=== PATIENT | female | born 1995 | race Caucasian/White ===

== ENCOUNTER 2017-12-13 11:18 | Observation (INO) | payer BC ==
[~2017-12-13] VITALS: Ht 182.9 cm; Wt 77.6 kg
[2017-12-13] MEDS ORDERED: BUPR200T34 (11:30)
[2017-12-13] MEDS ORDERED: NS(*) 0.9% 1000 ML BAG 1,000 ML IV ONE ×2 (11:32→12:08)
[2017-12-13] MEDS ORDERED: ONDANSETRON 4 MG/2 ML VIAL IVP ONE (11:35)
[2017-12-13] MEDS ORDERED: fentaNYL CITR 100 MCG/2 ML AMP IVP ONE ×2 (11:35→13:25)
--- NOTE | 2017-12-13 11:49 | ER Report ---
History and Physical Time Seen By MD: 11:34 Hx. of Stated Complaint: patient reports abdominal pain that started around 0650. HPI/ROS 22 year old awoke this am with periumbilical abd pain and nausea this am. one episode of diarrhea Allergies: Coded Allergies: No Known Drug Allergies (Unverified , 12/13/17) Home Meds Reported Medications Bupropion Hcl (BUPROPION XL) 150 Mg Tab.er.24h, 150 MG PO QDAY, #10 TAB 12/13/17 Discontinued Reported Medications Bupropion HCl (Bupropion HCl ER) 200 Mg Tablet.er 12/13/17 Past Medical/Surgical History lmp 2 weeks ago, not sexually active , depression Reviewed Nurses Notes: Yes Old Medical Records Reviewed: Yes Hx Substance Use Disorder: No Hx Alcohol Use: No Family History of: HTN, Diabetes (father) Constitutional Vital Sign - Last 24 Hours 12/13/17 12/13/17 12/13/17 12/13/17 11:22 11:26 11:33 11:48 Temp 97.4 Pulse 64 67 71 Resp 20 B/P (MAP) 109/65 109/65 (80) Pulse Ox 94 96 95 O2 Delivery Room Air 12/13/17 12/13/17 12/13/17 12/13/17 11:55 12:00 12:03 12:18 Pulse 66 69 B/P (MAP) 104/72 (83) 113/78 (90) Pulse Ox 98 86 12/13/17 12/13/17 12/13/17 12/13/17 12:30 12:33 13:00 13:03 Pulse 62 81 B/P (MAP) 113/67 (82) 114/68 (83) Pulse Ox 100 100 12/13/17 12/13/17 12/13/17 12/13/17 13:08 13:30 13:38 14:00 Pulse 85 83 B/P (MAP) 114/66 (82) 141/96 (111) Pulse Ox 99 100 12/13/17 12/13/17 12/13/17 12/13/17 14:08 14:30 14:38 15:00 Pulse 86 86 B/P (MAP) 130/78 (95) 111/80 (90) Pulse Ox 98 97 12/13/17 12/13/17 12/13/17 12/13/17 15:05 15:20 15:30 15:35 Pulse 97 77 89 B/P (MAP) 113/78 (90) Pulse Ox 96 98 98 Intake and Output 12/13/17 12/13/17 12/14/17 15:00 23:00 07:00 Intake Total 2000 ml Balance 2000 ml Physical Exam CHIEF COMPLAINT: Right lower quadrant abdominal pain HISTORY OF PRESENT ILLNESS: [Patient is a 22-year-old female states that she was well yesterday ate and drank with family for the holiday woke up this morning feeling very nauseated had a bout of diarrhea. Umbilical abdominal pain is now migrated to right lower quadrant must have 4 elements] REVIEW OF SYSTEMS: Respiratory: No cough, no dyspnea. Cardiovascular: No chest pain, no palpitations. Gastrointestinal: No vomiting, right lower quadrant abdominal pain positive rebound. Musculoskeletal: No back pain. Medical Decision Making Data Points Result Diagram: 12/13/17 1144 12/13/17 1144 Laboratory Hematology Test 12/13/17 11:26 12/13/17 11:44 12/13/17 12:13 12/13/17 13:42 Urine Color Yellow Urine Clarity Clear Urine pH 5.0 pH (4.8-9.5) Urine Specific Rodney 1.038 Urine Protein Negative mg/dL (NEGATIVE) Urine Glucose (UA) 500 mg/dL (NEGATIVE) Urine Ketones 20 mg/dL (NEGATIVE) Urine Blood Negative (NEGATIVE) Urine Nitrite Negative (NEGATIVE) Urine Bilirubin Negative (NEGATIVE) Urine Urobilinogen Negative mg/dL (0.2-1.9) Urine Leukocyte Esterase Negative (NEGATIVE) Urine RBC None /HPF (0-2/HPF) Urine WBC 1 /HPF (0-5/HPF) Urine Squamous Epithelial Cells Moderate /LPF (</=FEW) Urine Bacteria Few /HPF (NONE-FEW) Urine Mucus None /HPF (NONE-FEW) Red Blood Count 5.35 M/uL (4.17-5.56) Mean Corpuscular Volume 92.0 fL (80.0-96.0) Mean Corpuscular Hemoglobin 32.3 pg (26.0-33.0) Mean Corpuscular Hemoglobin Concent 35.2 g/dL (32.0-36.0) Red Cell Distribution Width 12.5 % (11.5-14.5) Mean Platelet Volume 8.1 fL (7.2-11.1) Neutrophils (%) (Auto) 85.6 % (39.4-72.5) Lymphocytes (%) (Auto) 6.5 % (17.6-49.6) Monocytes (%) (Auto) 6.8 % (4.1-12.4) Eosinophils (%) (Auto) 0.3 % (0.4-6.7) Basophils (%) (Auto) 0.8 % (0.3-1.4) Nucleated RBC Relative Count (auto) 0.1 /100WBC Neutrophils # (Auto) 11.2 K/uL (2.0-7.4) Lymphocytes # (Auto) 0.9 K/uL (1.3-3.6) Monocytes # (Auto) 0.9 K/uL (0.3-1.0) Eosinophils # (Auto) 0.0 K/uL (0.0-0.5) Basophils # (Auto) 0.1 K/uL (0.0-0.1) Nucleated RBC Absolute Count (auto) 0.01 K/uL Sodium Level 136 mmol/L (137-145) Potassium Level 3.9 mmol/L (3.5-5.0) Chloride Level 94 mmol/L (98-107) Carbon Dioxide Level 25 mmol/L (22-31) Blood Urea Nitrogen 14 mg/dl (7-18) Creatinine 0.80 mg/dl (0.52-1.04) Glomerular Filtration Rate Calc > 60.0 Random Glucose 456 mg/dl (75-110) Osmolality 304 mOSM/K (275-295) Lactate 1.6 mmol/L (0.7-2.1) Calcium Level 9.8 mg/dl (8.4-10.2) Total Bilirubin 0.7 mg/dl (0.2-1.3) Aspartate Amino Transf (AST/SGOT) 16 U/L (0-35) Alanine Aminotransferase (ALT/SGPT) 30 U/L (0-56) Alkaline Phosphatase 118 U/L (0-126) Total Protein 7.9 gm/dl (6.3-8.2) Albumin 4.6 g/dl (3.5-5.0) Amylase Level 80 U/L (0-110) Lipase 96 U/L (23-300) Human Chorionic Gonadotropin, Qual Negative (NEGATIVE) Acetone, Qualitative Small Venous Blood pH 7.32 (7.31-7.41) Whole Blood Glucose 418 mg/DL (75-110) Test 12/13/17 14:04 Chemistry Test 12/13/17 11:26 12/13/17 11:44 12/13/17 12:13 12/13/17 13:42 Urine Color Yellow Urine Clarity Clear Urine pH 5.0 pH (4.8-9.5) Urine Specific Rodney 1.038 Urine Protein Negative mg/dL (NEGATIVE) Urine Glucose (UA) 500 mg/dL (NEGATIVE) Urine Ketones 20 mg/dL (NEGATIVE) Urine Blood Negative (NEGATIVE) Urine Nitrite Negative (NEGATIVE) Urine Bilirubin Negative (NEGATIVE) Urine Urobilinogen Negative mg/dL (0.2-1.9) Urine Leukocyte Esterase Negative (NEGATIVE) Urine RBC None /HPF (0-2/HPF) Urine WBC 1 /HPF (0-5/HPF) Urine Squamous Epithelial Cells Moderate /LPF (</=FEW) Urine Bacteria Few /HPF (NONE-FEW) Urine Mucus None /HPF (NONE-FEW) White Blood Count 13.1 k/uL (4.5-11.0) Red Blood Count 5.35 M/uL (4.17-5.56) Hemoglobin 17.3 g/dL (12.0-16.0) Hematocrit 49.2 % (34.0-47.0) Mean Corpuscular Volume 92.0 fL (80.0-96.0) Mean Corpuscular Hemoglobin 32.3 pg (26.0-33.0) Mean Corpuscular Hemoglobin Concent 35.2 g/dL (32.0-36.0) Red Cell Distribution Width 12.5 % (11.5-14.5) Platelet Count 331 K/uL (150-450) Mean Platelet Volume 8.1 fL (7.2-11.1) Neutrophils (%) (Auto) 85.6 % (39.4-72.5) Lymphocytes (%) (Auto) 6.5 % (17.6-49.6) Monocytes (%) (Auto) 6.8 % (4.1-12.4) Eosinophils (%) (Auto) 0.3 % (0.4-6.7) Basophils (%) (Auto) 0.8 % (0.3-1.4) Nucleated RBC Relative Count (auto) 0.1 /100WBC Neutrophils # (Auto) 11.2 K/uL (2.0-7.4) Lymphocytes # (Auto) 0.9 K/uL (1.3-3.6) Monocytes # (Auto) 0.9 K/uL (0.3-1.0) Eosinophils # (Auto) 0.0 K/uL (0.0-0.5) Basophils # (Auto) 0.1 K/uL (0.0-0.1) Nucleated RBC Absolute Count (auto) 0.01 K/uL Glomerular Filtration Rate Calc > 60.0 Osmolality 304 mOSM/K (275-295) Lactate 1.6 mmol/L (0.7-2.1) Calcium Level 9.8 mg/dl (8.4-10.2) Total Bilirubin 0.7 mg/dl (0.2-1.3) Aspartate Amino Transf (AST/SGOT) 16 U/L (0-35) Alanine Aminotransferase (ALT/SGPT) 30 U/L (0-56) Alkaline Phosphatase 118 U/L (0-126) Total Protein 7.9 gm/dl (6.3-8.2) Albumin 4.6 g/dl (3.5-5.0) Amylase Level 80 U/L (0-110) Lipase 96 U/L (23-300) Human Chorionic Gonadotropin, Qual Negative (NEGATIVE) Acetone, Qualitative Small Venous Blood pH 7.32 (7.31-7.41) Whole Blood Glucose 418 mg/DL (75-110) Test 12/13/17 14:04 Toxicology Test 12/13/17 11:44 Acetone, Qualitative Small Urinalysis Test 12/13/17 11:26 Urine Color Yellow Urine Clarity Clear Urine pH 5.0 pH (4.8-9.5) Urine Specific Rodney 1.038 Urine Protein Negative mg/dL (NEGATIVE) Urine Glucose (UA) 500 mg/dL (NEGATIVE) Urine Ketones 20 mg/dL (NEGATIVE) Urine Blood Negative (NEGATIVE) Urine Nitrite Negative (NEGATIVE) Urine Bilirubin Negative (NEGATIVE) Urine Urobilinogen Negative mg/dL (0.2-1.9) Urine Leukocyte Esterase Negative (NEGATIVE) Urine RBC None /HPF (0-2/HPF) Urine WBC 1 /HPF (0-5/HPF) Urine Squamous Epithelial Cells Moderate /LPF (</=FEW) Urine Bacteria Few /HPF (NONE-FEW) Urine Mucus None /HPF (NONE-FEW) Microbiology Microbiology Date/Time Source Procedure Growth Status 12/13/17 14:04 Vaginal Wet Prep - Final Resulted 12/13/17 14:04 Vaginal Genital Culture Pending Resulted EKG/Imaging Imaging FACILITY: [facility] PATIENT NAME: Jessika Delacruz : 1995 MR: [id number] V: [id number] EXAM DATE: [id number] ORDERING PHYSICIAN: LEONOR CAMERON TECHNOLOGIST: [place] [facility] [place]: Jessika Delacruz : 1995 Visit/Account:[id number] Date of Sevice: 12/13/2017 PELVIC HISTORY: rlq abd pain appedix ok by ct but has a right ovarian c TECHNIQUE: Transabdominal ultrasound pelvis. COMPARISON: CT and pelvis performed earlier today FINDINGS: Uterus: ; 6.5 cm length x 2.9 cm AP x 3.5 cm transverse. Myometrium: Unremarkable. Endometrium: Unremarkable; double thickness 5.5 mm. Cervix: Grossly negative. Ovaries: Right - 2.9 x 1.9 x 3.6 cm. There is a 1.8 cm cyst in the right ovary Left - 3.4 x 2 x 2.4 cm Blood flow is documented in each ovary by duplex Doppler ultrasound. Adnexa: Grossly unremarkable. Free pelvic fluid: None. IMPRESSION: 1.8 cm simple cyst in the right ovary Report Dictated By: Ana Adames MD at 12/13/2017 2:59 PM Report E-Signed By: Ana Adames MD at 12/13/2017 3:02 PM WSN:[id number] FACILITY: [facility] PATIENT NAME: Jessiak Delacruz : 1995 MR: [id number] V: [id number] EXAM DATE: [id number] ORDERING PHYSICIAN: LEONOR CAMERON TECHNOLOGIST: [place] [facility] [place]: Jessika Delacruz : 1995 Visit/Account:[id number] Date of Sevice: 12/13/2017 COMPUTED TOMOGRAPHY OF THE Abdomen and Pelvis with CONTRAST INDICATION: Right lower quadrant abdominal pain. TECHNIQUE: Contiguous axial 3.[address] images were obtained through the abdomen and pelvis after the administration of 75 cc Isovue-370. Coronal and sagittal reformatted images were submitted. COMPARISON: None. FINDINGS: Lung bases: Clear. Liver and hepatic vasculature: Minimal fatty infiltration adjacent to falciform. No focal lesion. No ascites. Gallbladder and bile ducts: Normal Spleen: Normal Pancreas: Normal Adrenals: Normal Kidneys, ureters and bladder: No hydronephrosis or collecting system obstruction. Normal-appearing bladder. Retroperitoneum and aorta: Normal caliber aorta. GI tract, mesentery and peritoneum: No bowel obstruction. No free fluid or free air. Normal appendix. A few small bowel loops in the midabdomen have a mildly thickened wall. There is no jessica dilation. Uterus and adnexa: Unremarkable uterus. Trace fluid in the cul-de-sac. 1.9 cm right ovarian cyst. Bones and soft tissues: No acute osseous abnormality. IMPRESSION: 1. Normal appendix. 2. 1.9 cm right ovarian cyst with trace fluid in the cul-de-sac. 3. A few small bowel loops do appear mildly thick walled which could be from incomplete filling but could also reflect enteritis depending on the clinical history. No obstruction. One of the following dose optimization techniques was utilized in the performance of this exam: Automated exposure control; adjustment of the mA and/ or kV according to the patient's size; or use of an iterative reconstruction technique. Specific details can be referenced in the facility's radiology CT exam operational policy. Report Dictated By: Mina Allan MD at 12/13/2017 1:23 PM Report E-Signed By: Mina Allan MD at 12/13/2017 1:32 PM WSN:[id number] ED Course/Re-evaluation Clinical Indication for ER IV: Hydration ED Course 7414 discussed the patient with hospitalist he would like us to try and outpatient education protocol with this patient the did let him know patient is enteritis and not eating at this time with her high blood sugar. Seen by diabetic education the emergency room they had concerns about the patient going home as well did call the hospitalist back pain agreed to admit this patient with dehydration and enteritis with new rebound high blood sugar Re-evaluation Given 2 L of normal saline in the emergency room blood sugar went from 456 to 418 by bedside glucometer after the 2 L Procedure pelvic exam done. scant whit discharge, no adenexal tenderness Decision to Disposition Date: Dec 13, 2017 Decision to Disposition Time: 16:58 Depart Departure Latest Vital Signs Vital Signs Date Time Temp Pulse Resp B/P (MAP) Pulse Ox O2 Delivery O2 Flow Rate FiO2 12/13/17 15:35 89 98 12/13/17 15:30 113/78 (90) 12/13/17 11:22 97.4 20 Room Air Impression: Primary Impression: Enteritis Additional Impressions: Dehydration Hyperglycemia Ovarian cyst Condition: Condition Unchanged Disposition: Admitted from ER Problem Qualifiers LEONOR CAMERON Dec 13, 2017 11:49
[2017-12-13 11:54] LABS: PLATELET COUNT, AUTOMATED 331 K/uL (150-450)
[2017-12-13] MEDS ORDERED: IOPAMIDOL 76% 75 ML INFUS BTL 75 ML ONE (12:45)
--- NOTE | 2017-12-13 13:37 | RADIOLOGY IMAGING REPORT ---
FACILITY: [facility] PATIENT NAME: Jessika Delacruz : 1995 MR: [id number] V: [id number] EXAM DATE: ORDERING PHYSICIAN: LEONOR CAMERON TECHNOLOGIST: Location: [facility] Patient: Jessika Delacruz : 1995 Visit/Account:[id number] Date of Sevice: 12/13/2017 COMPUTED TOMOGRAPHY OF THE Abdomen and Pelvis with CONTRAST INDICATION: Right lower quadrant abdominal pain. TECHNIQUE: Contiguous axial 3.[address] images were obtained through the abdomen and pelvis after the administration of 75 cc Isovue-370. Coronal and sagittal reformatted images were submitted. COMPARISON: None. FINDINGS: Lung bases: Clear. Liver and hepatic vasculature: Minimal fatty infiltration adjacent to falciform. No focal lesion. No ascites. Gallbladder and bile ducts: Normal Spleen: Normal Pancreas: Normal Adrenals: Normal Kidneys, ureters and bladder: No hydronephrosis or collecting system obstruction. Normal-appearing b ladder. Retroperitoneum and aorta: Normal caliber aorta. GI tract, mesentery and peritoneum: No bowel obstruction. No free fluid or free air. Normal appendix. A few small bowel loops in the midabdomen have a mildly thickened wall. There is no jessica dilation. Uterus and adnexa: Unremarkable uterus. Trace fluid in the cul-de-sac. 1.9 cm right ovarian cyst. Bones and soft tissues: No acute osseous abnormality. IMPRESSION: 1. Normal appendix. 2. 1.9 cm right ovarian cyst with trace fluid in the cul-de-sac. 3. A few small bowel loops do appear mildly thick walled which could be from incomplete filling but c ould also reflect enteritis depending on the clinical history. No obstruction. One of the following dose optimization techniques was utilized in the performance of this exam: Autom ated exposure control; adjustment of the mA and/or kV according to the patient's size; or use of an i terative reconstruction technique. Specific details can be referenced in the facility's radiology C T exam operational policy. Report Dictated By: Mina Allan MD at 12/13/2017 1:23 PM Report E-Signed By: Mina Allan MD at 12/13/2017 1:32 PM WSN:[id number]
--- NOTE | 2017-12-13 15:07 | RADIOLOGY IMAGING REPORT ---
FACILITY: [facility] PATIENT NAME: Jessika Delacruz : 1995 MR: [id number] V: [id number] EXAM DATE: ORDERING PHYSICIAN: LEONOR CAMERON TECHNOLOGIST: Location: [facility] - [place] Patient: Jessika Delacruz : 1995 Visit/Account:[id number] Date of Sevice: 12/13/2017 PELVIC HISTORY: rlq abd pain appedix ok by ct but has a right ovarian c TECHNIQUE: Transabdominal ultrasound pelvis. COMPARISON: CT and pelvis performed earlier today FINDINGS: Uterus: ; 6.5 cm length x 2.9 cm AP x 3.5 cm transverse. Myometrium: Unremarkable. Endometrium: Unremarkable; double thickness 5.5 mm. Cervix: Grossly negative. Ovaries: Right - 2.9 x 1.9 x 3.6 cm. There is a 1.8 cm cyst in the right ovary Left - 3.4 x 2 x 2.4 cm Blood flow is documented in each ovary by duplex Doppler ultrasound. Adnexa: Grossly unremarkable. Free pelvic fluid: None. IMPRESSION: 1.8 cm simple cyst in the right ovary Report Dictated By: Ana Adames MD at 12/13/2017 2:59 PM Report E-Signed By: Ana Adames MD at 12/13/2017 3:02 PM WSN:[email or web address]
[2017-12-13 15:59] VITALS: BP 120/73
[2017-12-13] MEDS ORDERED: PROMETHAZINE 25 MG/ML 1 ML AMP IVP PRN (16:10)
[2017-12-13] MEDS ORDERED: BUPR-124 PO (16:20)
--- NOTE | 2017-12-13 16:24 | History & Physical ---
History of Present Illness Chief Complaint Nausea and vomiting History of Present Illness This patient presented to the emergency room complaining of nausea, vomiting, and abdominal pain. Her work up for abdominal pathology is negative to this point, but she was found to have an elevated blood sugar. She denies any previous history of diabetes, and also denies any classic symptoms such as polyuria and polydipsia. History Problems: (1) No significant past medical history Home Meds Reported Medications Bupropion HCl (Bupropion HCl ER) 200 Mg Tablet.er 12/13/17 Allergies: Coded Allergies: No Known Drug Allergies (Unverified , 12/13/17) Hx Smoking: No Smoking Status: Never Smoker Caffeine Intake: Coffee, Soda Caffeine/Cups Per Day: 4-6 drinks Hx Alcohol Use: No Hx Substance Use Disorder: No Social Drug Use: Never Review of Systems All Systems Reviewed/Normal: Yes, Except as Noted Gastrointestinal: Nausea, Vomiting Exam Vital Signs Vital Signs Date Time Temp Pulse Resp B/P (MAP) Pulse Ox O2 Delivery O2 Flow Rate FiO2 12/13/17 15:59 98.8 87 12 120/73 (89) 97 Room Air Neuro: No Gross deficits Eyes: PERRLA Cardiovascular: Regular Rate and Rhythm Respiratory: Clear to Auscultation GI: Abd Soft and Non-Tender Extremities: No Edema Integumentary: No Cyanosis Medical Decision Making Data Points Result Diagram: 12/13/17 1144 12/13/17 1144 EKG / Imaging Imaging CT abdomen and pelvic ultrasound reviewed. Assessment and Plan Problems: (1) Dehydration Status: Acute Assessment & Plan: She did present with vomiting and inability to tolerate oral intake. She has been started on IV fluids. (2) Gastroenteritis Assessment & Plan: She did present with nausea and vomiting. The CT scan of her abdomen showed findings consistent with a mild enteritis. We will treat her symptomatically. (3) DM type 1 (diabetes mellitus, type 1) Assessment & Plan: This is a new diagnosis for her. She was not acidotic on admission. We have started her on Lantus and mealtime Humalog. We have also placed her on sliding scale level #1. Diabetic education has been ordered. (4) Ovarian cyst Status: Acute Assessment & Plan: A simple cyst was noted on her pelvic ultrasound. Venous Thromboembolism Antithrombotics Is Pt On Any Antithrombotics?: No Exam Sepsis Risk: No Definite Risk ANNABELLA SYKES DO Dec 13, 2017 16:24
[2017-12-13] MEDS: NS(*) 0.9% 1000 ML BAG 1,000 ML IV PRN ×2 (17:03→23:42)
[2017-12-13] MEDS: INSULIN HUM LISPRO 100 UN/ML 3 ML VIAL SUBQ SCH (17:04)
[2017-12-13] MEDS: INSULIN HUM LISPRO 100 UN/ML 3 ML VIAL SUBQ PRN (17:04)
[2017-12-13 19:51] VITALS: BP 102/65
[2017-12-13] MEDS: INSULIN GLARGINE 100 U/ML 3 ML PEN SUBQ SCH (20:29)
[2017-12-13 23:26] VITALS: BP 134/72
[2017-12-14 05:20] VITALS: BP 113/72
[2017-12-14 05:37] LABS: PLATELET COUNT, AUTOMATED 232 K/uL (150-450)
[2017-12-14] MEDS: NS(*) 0.9% 1000 ML BAG 1,000 ML IV PRN (06:13)
[2017-12-14 07:43] VITALS: BP 115/63
[2017-12-14] MEDS: INSULIN HUM LISPRO 100 UN/ML 3 ML VIAL SUBQ PRN ×3 (07:53→16:39)
[2017-12-14] MEDS: INSULIN HUM LISPRO 100 UN/ML 3 ML VIAL SUBQ SCH ×4 (07:53→21:13)
--- NOTE | 2017-12-14 10:00 | Hospitalist Progress Note ---
Subjective Progress Notes Subjective She reports doing well. No N/V. Appetite good. Physical Exam Vital Signs Date Time Temp Pulse Resp B/P (MAP) Pulse Ox O2 Delivery O2 Flow Rate FiO2 12/14/17 07:43 93 12/14/17 07:43 98.5 82 12 115/63 (80) Room Air Intake and Output 12/15/17 07:00 Intake Total 40 ml Balance 40 ml Intake Oral 40 ml General Appearance: Alert, Awake Psych: Alert & Oriented X3 Result Diagram: 12/14/17 0517 12/14/17 0517 Item Value Date Time Whole Blood Glucose 215 mg/DL H 12/13/172328 Whole Blood Glucose 251 mg/DL H 12/13/172023 Whole Blood Glucose 237 mg/DL H 12/13/17 1655 Assessment and Plan Problems: (1) DM type 1 (diabetes mellitus, type 1) Assessment & Plan: This is a new diagnosis for her. She was not acidotic on admission, but did have slightly positive acetone. We have started her on Lantus and mealtime Humalog. We have also placed her on sliding scale level # 1. Diabetic education has been ordered. Will get her a glucometer. Will have her start doing her own monitoring and injections. She will need close follow up as an outpatient. (2) Dehydration Status: Acute Assessment & Plan: She did present with vomiting and inability to tolerate oral intake. She was started on IV fluids. Symptoms have resolved. (3) Gastroenteritis Assessment & Plan: She did present with nausea and vomiting. The CT scan of her abdomen showed findings consistent with a mild enteritis. She has improved/ resolved. (4) Ovarian cyst Status: Acute Assessment & Plan: A simple cyst was noted on her pelvic ultrasound. Exam Sepsis Risk: No Definite Risk YOHANA ANDERSEN MD Dec 14, 2017 10:00
[2017-12-14] MEDS: buPROPion XL 150 MG TABCR PO SCH (10:24)
[2017-12-14 11:46] VITALS: BP 117/80
[2017-12-14 13:01] VITALS: Ht 182.9 cm; Wt 77.6 kg
--- NOTE | 2017-12-14 13:09 | Medical Nutrition Therapy ---
Nutritional Education Nutrition Education Topic: Diabetic Nutrition Learning Readiness: Interested Teaching Methods: Discussion, Handout, Demonstration Response to Teaching: Verbalize understanding, Reinforcement needed Teaching Recipient: Patient Nutrition Counseling: Provided eduation on diet with T1DM. Reviewed CHO counting. Reviewed pt's current intake and CHO amounts. Pt usually at [facility] [place]. Eats eggs/fruit (30gm CHO) for bftt, skips lunch, eat veg/meat (~15gm CHO) supper. Snacks on chips, popcorn. Recommend pt initally try 45gm CHO/meal with 15-30 gm snacks. Reviewed meat/stach to go lunch options. Discussed CHO counting apps. Recommended pt to work with [facility] and use CHO ratio. pt may be a good candidate for insulin pump. Nutrition Monitoring & Eval RD Patient Assessment Time: [address] Assessment Type: RD Education Patient Nutrition Acuity: 2-Moderate Follow Up Date: Dec 15, 2017 Nutritional Comment: Provide 30 minutes education on diabetic diet. JACQUELIN JUDGE Dec 14, 2017 13:09
[2017-12-14 14:58] VITALS: BP 115/75
[2017-12-14 19:35] VITALS: BP 112/76
[2017-12-14] MEDS: INSULIN GLARGINE 100 U/ML 3 ML PEN SUBQ SCH (21:13)
[2017-12-14 23:36] VITALS: BP 129/78
[2017-12-15 03:19] VITALS: BP 127/77
[2017-12-15 07:18] VITALS: BP 127/83
[2017-12-15] MEDS: INSULIN HUM LISPRO 100 UN/ML 3 ML VIAL SUBQ SCH (07:20)
[2017-12-15] MEDS: INSULIN HUM LISPRO 100 UN/ML 3 ML VIAL SUBQ PRN ×2 (07:21→12:00)
[2017-12-15] MEDS: buPROPion XL 150 MG TABCR PO SCH (08:26)
[2017-12-15] MEDS ORDERED: INFLUENZA VIRUS VAC 0.5 ML SYR IM ONLY ONE (09:00)
[2017-12-15] MEDS ORDERED: INSU100I28 SQ (11:06)
[2017-12-15] MEDS ORDERED: INSU100I30 SUBQ (11:06)
--- NOTE | 2017-12-15 11:25 | Hospitalist Depart ---
Discharge Summary Reason for Hosp/Final Diag: (1) DM type 1 (diabetes mellitus, type 1) Hospital Course & Plan: This is a new diagnosis for her. She was not acidotic on admission, but did have slightly positive acetone. C-Peptide is low. HgA1C is >14. We have started her on Lantus and mealtime Humalog. We have also placed her on sliding scale level #1. Blood sugars have been 211-243 in the last 24 hours. She has received Diabetic education about diet and injections. She feels comfortable giving herself injections. I have explained that I would like her glucose from 150-250 for now because of the risk of low glucose. Once , she gets more comfortable managing her diabetes, then she will need tighter control. See below. She is to follow up with her PCP in the next couple weeks and then likely an claim rep. (2) Dehydration Status: Resolved Hospital Course & Plan: She did present with vomiting and inability to tolerate oral intake. She was started on IV fluids. Symptoms have resolved. (3) Gastroenteritis Status: Resolved Hospital Course & Plan: She did present with nausea and vomiting. The CT scan of her abdomen showed findings consistent with a mild enteritis. She has improved/resolved. (4) Ovarian cyst Status: Acute Hospital Course & Plan: A simple cyst was noted on her pelvic ultrasound. Departure Weight (Pounds): 171 Result Diagram: 12/14/17 0517 12/15/17 0534 Item Value Date Time Sodium Level 136 mmol/L L 12/13/17 1144 Potassium Level 3.9 mmol/L 12/13/17 1144 Chloride Level 94 mmol/L L 12/13/17 1144 Carbon Dioxide Level 25 mmol/L 12/13/17 1144 Blood Urea Nitrogen 14 mg/dl 12/13/17 1144 Creatinine 0.80 mg/dl 12/13/17 1144 Random Glucose 456 mg/dl H 12/13/17 1144 Lactate 1.6 mmol/L 12/13/17 1144 Osmolality 304 mOSM/K H 12/13/17 1144 Total Bilirubin 0.7 mg/dl 12/13/17 1144 Aspartate Amino Transf (AST/SGOT) 16 U/L 12/13/17 1144 Alanine Aminotransferase (ALT/SGPT) 30 U/L 12/13/17 1144 Alkaline Phosphatase 118 U/L 12/13/17 1144 Total Protein 7.9 gm/dl 12/13/17 1144 Albumin 4.6 g/dl 12/13/17 1144 Amylase Level 80 U/L 12/13/17 1144 Lipase 96 U/L 12/13/17 1144 Human Chorionic Gonadotropin, Qual Negative 12/13/17 1144 Serum C-Peptide 0.7 ng/mL L 12/13/17 1144 Whole Blood Glucose 418 mg/DL H 12/13/17 1342 Whole Blood Glucose 237 mg/DL H 12/13/17 1655 Whole Blood Glucose 251 mg/DL H 12/13/17 2024 Whole Blood Glucose 215 mg/DL H 12/13/17 2329 Random Glucose 215 mg/dl H 12/14/17 0517 Whole Blood Glucose 211 mg/DL H 12/14/17 0748 Whole Blood Glucose 212 mg/DL H 12/14/17 1200 Random Glucose 243 mg/dl H 12/15/17 0534 Hemoglobin A1c > 14.0 % H 12/15/17 0534 Calcium Level 8.6 mg/dl 12/15/17 0534 Total Bilirubin 0.3 mg/dl 12/15/17 0534 Aspartate Amino Transf (AST/SGOT) 15 U/L 12/15/17 0534 Alanine Aminotransferase (ALT/SGPT) 22 U/L 12/15/17 0534 Alkaline Phosphatase 66 U/L 12/15/17 0534 Sodium Level 134 mmol/L L 12/14/17 0517 Potassium Level 3.7 mmol/L 12/14/17 0517 Chloride Level 102 mmol/L 12/14/17 0517 Carbon Dioxide Level 22 mmol/L 12/14/17 0517 Blood Urea Nitrogen 10 mg/dl 12/14/17 0517 Creatinine 0.70 mg/dl 12/14/17 0517 Creatinine 0.60 mg/dl 12/15/17 0534 Blood Urea Nitrogen 12 mg/dl 12/15/17 0534 Carbon Dioxide Level 21 mmol/L L 12/15/17 0534 Chloride Level 102 mmol/L 12/15/17 0534 Potassium Level 3.6 mmol/L 12/15/17 0534 Sodium Level 134 mmol/L L 12/15/17 0534 Urine Glucose (UA) 500 mg/dL 12/13/17 1126 Urine Ketones 20 mg/dL H 12/13/17 1126 Urine RBC None /HPF 12/13/17 1126 Urine WBC 1 /HPF 12/13/17 1126 Urine Squamous Epithelial Cells Moderate /LPF H 12/13/17 1126 Chlamydia trachomatis Amplified DNA Negative 12/13/17 1404 Neisseria gonorrhoeae Amplified DNA Negative 12/13/17 1404 Acetone, Qualitative Small 12/13/17 1144 Venous Blood pH 7.32 12/13/17 1213 White Blood Count 13.1 k/uL H 12/13/17 1144 White Blood Count 5.6 k/uL 12/14/17 0517 Hemoglobin 17.3 g/dL H 12/13/17 1144 Hemoglobin 14.1 g/dL 12/14/17 0517 Platelet Count 331 K/uL 12/13/17 1144 Platelet Count 232 K/uL 12/14/17 0517 Neutrophils (%) (Auto) 85.6 % H 12/13/17 114 Neutrophils (%) (Auto) 49.6 % 12/14/17 05 SPEC #: [id number] [place]: 12/13/17 STATUS: RES REQ #: [id number] RECD: 12/13/17 [facility] DR: LEONOR CAMERON APRN SOURCE: VAGINAL ENTR: 12/13/17-13[address] [facility] DR: KAYLYNNESEmy: ORDERED: CULT GENITAL, WET PREP Procedure Result Verified WET PREP Final 12/13/17-1426 WET PREP MANY WHITE BLOOD CELLS SEEN MANY SQUAMOUS EPITHELIAL CELLS SEEN NO YEAST SEEN NO HYPHAE, PSEUDOHYPHAE SEEN NO CLUE CELLS SEEN NO TRICHOMONAS SEEN NO SPERM SEEN GENITAL CULT Preliminary 12/15/17-1048 NORMAL GENITAL ASHLEE PRESENT CULTURE REINCUBATED Imaging 12/13/17 Pelvis US - 1.8 cm simple cyst in the right ovary 12/13/17 Abd/Pelvis CT - 1. Normal appendix. 2. 1.9 cm right ovarian cyst with trace fluid in the cul-de-sac. 3. A few small bowel loops do appear mildly thick walled which could be from incomplete filling but could also reflect enteritis depending on the clinical history. No obstruction. Condition: Improved Discharge: Home Discharge Instructions Home Meds Active Scripts Insulin Lispro 100 Un/Ml Pen (HUMALOG 3 ML PEN) 100 Unit/1 Ml Insuln.pen, 1-5 UNIT SQ ACHS, #1 DIS.SYR 1 Refill 2 units before each meal plus sliding scale Prov:DEVON TIERNEY MD 12/15/17 Insulin Glargine 100 Un/Ml Pen (LANTUS SOLOSTAR PEN) 100 Unit/1 Ml Insuln.pen, 10 UNIT SUBQ QHS, #1 1 Refill Prov:DEVON TIERNEY MD 12/15/17 Reported Medications Bupropion Hcl (BUPROPION XL) 150 Mg Tab.er.24h, 150 MG PO QDAY, #10 TAB 12/13/17 Discontinued Reported Medications Bupropion HCl (Bupropion HCl ER) 200 Mg Tablet.er 12/13/17 Diet: Diabetic Activity: As Tolerated Special Instructions: Follow up with your PCP in a couple weeks. Bring a copy of this discharge summary, labs, and a log of glucose results to the appointment. Go to the ER for glucose >400 or <60. Call your PCP for glucose consistently <80 or >300. Use sliding scale coverage level 1 plus 2 units of glucose before meals. If the night time glucose is >300, give 2 units and check again in 2 hours. If glucose is increasing call the ER. If the glucose is <150 drink some juice. Venous Thromboembolism Antithrombotics Is Pt On Any Antithrombotics?: No DEVON TIERNEY MD Dec 15, 2017 11:25
[2017-12-15 12:45] VITALS: BP 121/88
== END 2017-12-15 11:31 | disposition home or self-care (01) ==
LOC: ER 11:29 → INTOOBSV 15:39 → MED 15:39
PROVIDERS: ADMIT Family Medicine; ATTEND Family Medicine
DX: K52.9 Noninfective gastroenteritis and colitis, unspecified (principal); E86.0 Dehydration; E10.65 Type 1 diabetes mellitus with hyperglycemia; N83.201 Unspecified ovarian cyst, right side
CPT/HCPCS: 36415; 36416; 74177; 76856; 81001; 82009; 82150; 82800; 82948; 83036; 83605; 83690; 83930; 84681; 84703; 85025; 87070; 87210; 87491; 87591; 96361; 96372; 96374; 96375; 96376; 99285; G0378; J1815; J2405; J3010; J7030; Q9967; 82040; 82247; 82310; 82374; 82435; 82565; 82947; 84075; 84132; 84155; 84295; 84450; 84460; 84520